=== PATIENT | female | born 1980 | race Caucasian/White ===

== ENCOUNTER 2022-01-03 01:42 | Emergency (ER) | payer SELFPAY ==
[~2022-01-03] VITALS: Ht 167.6 cm; Wt 100.0 kg
[2022-01-03 03:12] LABS: HEMATOCRIT 36.1 % (36.0-47.0); HEMOGLOBIN 10.9 g/dl (12.0-15.5); MEAN CORPUSCULAR HEMOGLOBIN 25.1 pg (27.0-33.0); MEAN CORPUSCULAR HGB CONC 30.2 g/dl (32.0-36.5); MEAN CORPUSCULAR VOLUME 83.2 fl (80.0-96.0); PLATELET COUNT, AUTOMATED 450 10^3/uL (150-450); RED BLOOD COUNT 4.34 10^6/uL (4.00-5.40); WHITE BLOOD COUNT 8.2 10^3/uL (4.0-10.0)
[2022-01-03 03:34] LABS: AMPHETAMINES LEVEL URINE NEGATIVE (NEGATIVE); BARBITURATES URINE NEGATIVE (NEGATIVE); BENZODIAZEPINES URINE NEGATIVE (NEGATIVE); CANNABINOIDS URINE NEGATIVE (NEGATIVE); COCAINE METABOLITE URINE NEGATIVE (NEGATIVE); METHADONE URINE NEGATIVE (NEGATIVE); OPIATES URINE NEGATIVE (NEGATIVE); PHENCYCLIDINE URINE NEGATIVE (NEGATIVE)
[2022-01-03 03:42] LABS: ACETAMINOPHEN LEVEL < 2.0 UG/ML (10.0-30.0); ALBUMIN 3.5 GM/DL (3.2-5.2); ALT/SGPT 21 U/L (12-78); BILIRUBIN,DIRECT < 0.1 MG/DL (0.0-0.2); BILIRUBIN,TOTAL 0.2 MG/DL (0.2-1.0); BLOOD UREA NITROGEN 8 MG/DL (7-18); CALCIUM LEVEL 8.6 MG/DL (8.5-10.1); CARBON DIOXIDE LEVEL 29 MEQ/L (21-32); CHLORIDE LEVEL 113 MEQ/L (98-107); CREATININE FOR GFR 0.52 MG/DL (0.55-1.30); ETHYL ALCOHOL (ETHANOL) 0.239 % (0.000-0.010); GLOMERULAR FILTRATION RATE > 60.0 (>58); GLUCOSE, FASTING 91 MG/DL (70-100); POTASSIUM SERUM 4.5 MEQ/L (3.5-5.1); SALICYLATE LEVEL < 1.7 MG/DL (5.0-30.0); SODIUM LEVEL 146 MEQ/L (136-145); THYROID STIMULATING HORMONE 0.926 uIU/ML (0.358-3.740); TOTAL PROTEIN 7.1 GM/DL (6.4-8.2)
[2022-01-03 04:02] LABS: HCG, SERUM QUALITATIVE NEGATIVE (NEGATIVE)
[2022-01-03 10:30] VITALS: BP 144/75
== END 2022-01-03 11:47 | disposition home or self-care (01) ==
LOC: M ED 01:42
DX: R45.851 Suicidal ideations (principal); F10.10 Alcohol abuse, uncomplicated; Z88.1 Allergy status to other antibiotic agents; Z98.84 Bariatric surgery status

== ENCOUNTER 2022-01-06 05:13 | Inpatient (IN) | payer SELFPAY ==
[2022-01-06] VITALS (10 sets, daily range): BP systolic 118–154; BP diastolic 71–90
[~2022-01-06] VITALS: Ht 167.6 cm; Wt 110.8 kg
[2022-01-06] MEDS ORDERED: BUPR150T12 PO (05:39)
[2022-01-06 05:46] LABS: BASO # 0.1 10^3/uL (0.0-0.2); BASO % 0.5 % (0.0-1.0); EOS % 0.1 % (0.0-3.0); HEMATOCRIT 34.1 % (36.0-47.0); HEMOGLOBIN 10.7 g/dl (12.0-15.5); LYMPH # 1.1 10^3/uL (1.5-5.0); LYMPH % 10.7 % (24.0-44.0); MEAN CORPUSCULAR HEMOGLOBIN 25.7 pg (27.0-33.0); MEAN CORPUSCULAR HGB CONC 31.4 g/dl (32.0-36.5); MONO # 0.6 10^3/uL (0.0-0.8); MONO % 6.3 % (2.0-8.0); NEUTROPHILS # 8.4 10^3/uL (1.5-8.5); NEUTROPHILS % 81.7 % (36.0-66.0); PLATELET COUNT, AUTOMATED 453 10^3/uL (150-450); RED BLOOD COUNT 4.16 10^6/uL (4.00-5.40); WHITE BLOOD COUNT 10.2 10^3/uL (4.0-10.0)
[2022-01-06] MEDS ORDERED: NS 1,000 ML IV ONE (06:00)
[2022-01-06] MEDS ORDERED: LORazepam 2 MG TAB PO PRN (06:00)
[2022-01-06 06:09] LABS: ACETAMINOPHEN LEVEL < 2.0 UG/ML (10.0-30.0); ALBUMIN 3.4 GM/DL (3.2-5.2); ALT/SGPT 27 U/L (12-78); BILIRUBIN,DIRECT < 0.1 MG/DL (0.0-0.2); BILIRUBIN,TOTAL 0.2 MG/DL (0.2-1.0); BLOOD UREA NITROGEN 11 MG/DL (7-18); CALCIUM LEVEL 8.6 MG/DL (8.5-10.1); CARBON DIOXIDE LEVEL 18 MEQ/L (21-32); CHLORIDE LEVEL 103 MEQ/L (98-107); CREATININE FOR GFR 0.69 MG/DL (0.55-1.30); ETHYL ALCOHOL (ETHANOL) 0.206 % (0.000-0.010); GLOMERULAR FILTRATION RATE > 60.0 (>58); GLUCOSE, FASTING 145 MG/DL (70-100); SALICYLATE LEVEL < 1.7 MG/DL (5.0-30.0); SODIUM LEVEL 135 MEQ/L (136-145)
[2022-01-06 06:43] LABS: RSV AMPLIFICATION NEGATIVE (NEGATIVE)
[2022-01-06] MEDS ORDERED: HOME MED LIST COMPLETE! XX SCH (07:00)
[2022-01-06] MEDS ORDERED: ONDANSETRON 4MG/2ML VIAL IV PRN (08:00)
[2022-01-06 08:09] LABS: AMPHETAMINES LEVEL URINE POSITIVE (NEGATIVE); BARBITURATES URINE NEGATIVE (NEGATIVE); BENZODIAZEPINES URINE NEGATIVE (NEGATIVE); CANNABINOIDS URINE NEGATIVE (NEGATIVE); COCAINE METABOLITE URINE NEGATIVE (NEGATIVE); METHADONE URINE NEGATIVE (NEGATIVE); OPIATES URINE NEGATIVE (NEGATIVE); PHENCYCLIDINE URINE NEGATIVE (NEGATIVE)
[2022-01-06] MEDS: OXAZEPAM 15MG CAP PO SCH ×2 (08:18→15:01)
[2022-01-06] MEDS ORDERED: FOLIC ACID 1 MG TAB PO SCH (09:00)
[2022-01-06] MEDS ORDERED: MULTIVITAMINS/MINERALS THERAP 1 TAB PO SCH (09:00)
[2022-01-06] MEDS ORDERED: THIAMINE 100 MG TAB PO SCH (09:00)
[2022-01-06] MEDS: LORazepam 2 MG TAB PO PRN ×4 (10:15→20:27)
[2022-01-06] MEDS: ENOXAPARIN 40MG/0.4ML SYRINGE (J1650 PER 10MG) SC SCH (10:58)
[2022-01-06] MEDS ORDERED: MULTIVITAMIN -ADULT INJECTION 10 ML, THIAMINE INJection 100 MG, FOLIC ACID 1 MG in NS 1... IV ONE (11:00)
[2022-01-06] MEDS ORDERED: ULIPRISTAL ACETATE 30 MG TAB (ELLA) PO ONE (17:40)
[2022-01-06] MEDS ORDERED: LIDOCAINE 1% MDV 20ML VIAL IM ONE (17:40)
[2022-01-06] MEDS ORDERED: cefTRIAXone SOD 1GM VIAL (J0696 PER 250MG) IM ONE (17:40)
[2022-01-06] MEDS ORDERED: OXAZEPAM 15MG CAP PO SCH (18:00)
[2022-01-06 18:55] LABS: HCG, SERUM QUALITATIVE NEGATIVE (NEGATIVE)
[2022-01-06 19:37] LABS: HIV 1&2 SCREEN CENTAUR NEGATIVE (NEGATIVE)
[2022-01-06 19:38] LABS: HEPATITIS B CORE ANTIBODY IGM NEGATIVE (NEGATIVE); HEPATITIS B SURFACE ANTIGEN NEGATIVE (NEGATIVE); HEPATITIS C VIRUS ABY INDEX 0.2 INDEX (<0.8)
[2022-01-06] MEDS: DOXYCYCLINE HYCLATE 100MG TABLET PO SCH (20:26)
[2022-01-06] MEDS: metroNIDAZOLE (FLAGYL) 500MG TABLET PO SCH (20:26)
[2022-01-06] MEDS: TRUVADA 200MG/300MG TABLET PO SCH (20:27)
[2022-01-06] MEDS: RALTEGRAVIR 400 MG TAB (ISENTRESS) PO SCH (20:27)
[2022-01-07] VITALS (7 sets, daily range): BP systolic 124–142; BP diastolic 82–95
[2022-01-07] MEDS: OXAZEPAM 15MG CAP PO SCH ×4 (00:05→21:38)
[2022-01-07 06:07] LABS: HEMATOCRIT 29.9 % (36.0-47.0); HEMOGLOBIN 9.5 g/dl (12.0-15.5); MEAN CORPUSCULAR HEMOGLOBIN 25.6 pg (27.0-33.0); MEAN CORPUSCULAR HGB CONC 31.8 g/dl (32.0-36.5); MEAN CORPUSCULAR VOLUME 80.6 fl (80.0-96.0); PLATELET COUNT, AUTOMATED 363 10^3/uL (150-450); RED BLOOD COUNT 3.71 10^6/uL (4.00-5.40)
[2022-01-07 06:28] LABS: ALBUMIN 3.1 GM/DL (3.2-5.2); ALT/SGPT 23 U/L (12-78); BILIRUBIN,TOTAL 0.4 MG/DL (0.2-1.0); BLOOD UREA NITROGEN 8 MG/DL (7-18); CALCIUM LEVEL 8.8 MG/DL (8.5-10.1); CARBON DIOXIDE LEVEL 27 MEQ/L (21-32); CHLORIDE LEVEL 108 MEQ/L (98-107); CREATININE FOR GFR 0.68 MG/DL (0.55-1.30); GLOMERULAR FILTRATION RATE > 60.0 (>58); GLUCOSE, FASTING 80 MG/DL (70-100); MAGNESIUM LEVEL 1.9 MG/DL (1.8-2.4); PHOSPHORUS LEVEL 4.2 MG/DL (2.5-4.9); POTASSIUM SERUM 3.2 MEQ/L (3.5-5.1); SODIUM LEVEL 141 MEQ/L (136-145); TOTAL PROTEIN 6.5 GM/DL (6.4-8.2)
[2022-01-07] MEDS ORDERED: POTASSIUM CHLORIDE 10MEQ SR TABLET PO ONE (06:40)
[2022-01-07] MEDS: ENOXAPARIN 40MG/0.4ML SYRINGE (J1650 PER 10MG) SC SCH (08:15)
[2022-01-07] MEDS: THIAMINE 100 MG TAB PO SCH ×2 (08:18→21:38)
[2022-01-07] MEDS: DOXYCYCLINE HYCLATE 100MG TABLET PO SCH ×2 (08:18→21:38)
[2022-01-07] MEDS: metroNIDAZOLE (FLAGYL) 500MG TABLET PO SCH ×2 (08:18→21:38)
[2022-01-07] MEDS: MULTIVITAMINS/MINERALS THERAP 1 TAB PO SCH (08:18)
[2022-01-07] MEDS ORDERED: FOLIC ACID 1 MG TAB PO SCH (09:00)
[2022-01-07 10:17] LABS: GC DNA AMPLIFICATION NEGATIVE (NEGATIVE)
[2022-01-07] MEDS: RALTEGRAVIR 400 MG TAB (ISENTRESS) PO SCH ×2 (10:32→21:39)
[2022-01-07] MEDS: TRUVADA 200MG/300MG TABLET PO SCH (10:32)
[2022-01-07] MEDS ORDERED: ACETAMINOPHEN TAB 650MG DOSE (2X325MG) PO PRN (21:40)
[2022-01-08] VITALS: BP 140/95
[2022-01-08 02:00] VITALS: BP 122/83
[2022-01-08 05:10] VITALS: BP 120/83
[2022-01-08] MEDS: OXAZEPAM 15MG CAP PO SCH ×2 (05:43→14:16)
[2022-01-08 06:24] LABS: HEMATOCRIT 30.9 % (36.0-47.0); HEMOGLOBIN 9.8 g/dl (12.0-15.5); MEAN CORPUSCULAR HEMOGLOBIN 25.7 pg (27.0-33.0); MEAN CORPUSCULAR HGB CONC 31.7 g/dl (32.0-36.5); MEAN CORPUSCULAR VOLUME 81.1 fl (80.0-96.0); PLATELET COUNT, AUTOMATED 339 10^3/uL (150-450); RED BLOOD COUNT 3.81 10^6/uL (4.00-5.40); WHITE BLOOD COUNT 5.2 10^3/uL (4.0-10.0)
[2022-01-08 06:55] LABS: BLOOD UREA NITROGEN 6 MG/DL (7-18); CALCIUM LEVEL 8.9 MG/DL (8.5-10.1); CARBON DIOXIDE LEVEL 28 MEQ/L (21-32); CHLORIDE LEVEL 109 MEQ/L (98-107); CREATININE FOR GFR 0.59 MG/DL (0.55-1.30); GLOMERULAR FILTRATION RATE > 60.0 (>58); GLUCOSE, FASTING 81 MG/DL (70-100); MAGNESIUM LEVEL 1.9 MG/DL (1.8-2.4); PHOSPHORUS LEVEL 5.5 MG/DL (2.5-4.9); POTASSIUM SERUM 3.6 MEQ/L (3.5-5.1); SODIUM LEVEL 144 MEQ/L (136-145)
[2022-01-08] MEDS: RALTEGRAVIR 400 MG TAB (ISENTRESS) PO SCH ×2 (09:23→19:30)
[2022-01-08] MEDS: DOXYCYCLINE HYCLATE 100MG TABLET PO SCH ×2 (09:23→19:28)
[2022-01-08] MEDS: metroNIDAZOLE (FLAGYL) 500MG TABLET PO SCH (09:23)
[2022-01-08] MEDS: TRUVADA 200MG/300MG TABLET PO SCH ×2 (09:23→19:28)
[2022-01-08] MEDS: MULTIVITAMINS/MINERALS THERAP 1 TAB PO SCH (09:23)
[2022-01-08] MEDS: ENOXAPARIN 40MG/0.4ML SYRINGE (J1650 PER 10MG) SC SCH (09:24)
[2022-01-08 10:00] VITALS: BP 125/82
[2022-01-08] MEDS ORDERED: VITMTA PO (12:33)
[2022-01-08] MEDS ORDERED: EMTR1TAB3 PO (12:33)
[2022-01-08] MEDS ORDERED: DOXY100T PO (12:33)
[2022-01-08] MEDS ORDERED: RALT40TA PO (12:33)
[2022-01-08] MEDS ORDERED: OXAZ15CA4 PO (12:33)
[2022-01-08 13:18] LABS: HEPATITIS B SURFACE ANTIBODY POSITIVE (POSITIVE)
[2022-01-08 14:00] VITALS: BP 136/99
[2022-01-09] MEDS ORDERED: OXAZEPAM 15MG CAP PO SCH ×2 (02:00→09:00)
== END 2022-01-08 19:55 | disposition home or self-care (01) | DRG 812 ==
LOC: M ED 05:13 → M ED INP 07:35 → ENRESERV 08:25 → M ICU 09:12 → M MSPAV 01-07 15:36
PROVIDERS: ADMIT Internal Medicine; ATTEND Internal Medicine
DX: T43.292A Poisoning by other antidepressants, intentional self-harm, initial encounter (principal); T74.21XA Adult sexual abuse, confirmed, initial encounter; T39.312A Poisoning by propionic acid derivatives, intentional self-harm, initial encounter; F60.9 Personality disorder, unspecified; Z81.8 Family history of other mental and behavioral disorders; F10.10 Alcohol abuse, uncomplicated; F15.10 Other stimulant abuse, uncomplicated; Y07.9 Unspecified perpetrator of maltreatment and neglect; Z20.822 Contact with and (suspected) exposure to COVID-19; Z88.1 Allergy status to other antibiotic agents; Z79.899 Other long term (current) drug therapy

== ENCOUNTER 2022-01-20 10:22 | Emergency (ER) | payer MEDICAID ==
[~2022-01-20] VITALS: Ht 167.6 cm; Wt 104.5 kg
[2022-01-20 10:22] VITALS: BP 142/63
[~2022-01-20 10:22] MED LIST: BUPR150T12 PO; DOXY100T PO; EMTR1TAB3 PO; OXAZ15CA4 PO; RALT40TA PO; VITMTA PO
[2022-01-20] MEDS ORDERED: HYDROCORTISONE 1% CREAM 30 GM TOP ONE (12:00)
[2022-01-20 12:13] LABS: BASO # 0.1 10^3/uL (0.0-0.2); BASO % 0.9 % (0.0-1.0); EOS # 0.1 10^3/uL (0.0-0.5); EOS % 0.9 % (0.0-3.0); HEMOGLOBIN 10.8 g/dl (12.0-15.5); LYMPH # 1.8 10^3/uL (1.5-5.0); LYMPH % 23.1 % (24.0-44.0); MEAN CORPUSCULAR HEMOGLOBIN 25.1 pg (27.0-33.0); MEAN CORPUSCULAR HGB CONC 30.9 g/dl (32.0-36.5); MEAN CORPUSCULAR VOLUME 81.2 fl (80.0-96.0); MONO # 0.5 10^3/uL (0.0-0.8); MONO % 5.9 % (2.0-8.0); NEUTROPHILS # 5.4 10^3/uL (1.5-8.5); NEUTROPHILS % 68.8 % (36.0-66.0); PLATELET COUNT, AUTOMATED 436 10^3/uL (150-450); RED BLOOD COUNT 4.31 10^6/uL (4.00-5.40); WHITE BLOOD COUNT 7.9 10^3/uL (4.0-10.0)
[2022-01-21 13:08] LABS: Lyme Disease IgG/IgM Antibodie <0.91 ISR (0.00-0.90); Lyme Disease IgM Ab Quantitati <0.80 index (0.00-0.79)
== END 2022-01-20 12:49 | disposition home or self-care (01) ==
LOC: M ED 10:22
DX: S30.860A Insect bite (nonvenomous) of lower back and pelvis, initial encounter (principal); S30.861A Insect bite (nonvenomous) of abdominal wall, initial encounter; W57.XXXA Bitten or stung by nonvenomous insect and other nonvenomous arthropods, initial encounter; Y92.9 Unspecified place or not applicable; Y93.9 Activity, unspecified; Y99.9 Unspecified external cause status; Z20.7 Contact with and (suspected) exposure to pediculosis, acariasis and other infestations